=== PATIENT | female | born 1960 | race African-American/Black ===

== ENCOUNTER → 2025-06-22 | Day surgery (SDC) | payer OTHER | END | disposition home or self-care (01) | LOC: JMAMMO-SUR 08:12 | PROVIDERS: ATTEND Nurse Practitioner Family | PROC: 0H9U3ZX Drainage of Left Breast, Percutaneous Approach, Diagnostic (ICD-10-PCS; principal; 2025-06-22) | DX: N63.32 Unspecified lump in axillary tail of the left breast (principal) | CPT/HCPCS: 19083; C1739; 76942-TC; 87899; 88305-TC; A4648 ==